=== PATIENT | female | born 2000 | race Caucasian/White ===

== ENCOUNTER 2023-01-14 12:07 | Emergency (ER) | payer BC ==
[2023-01-14 12:47] LABS: #Monocytes 0.4 10x3/uL (0.0-1.1); %Basophils 0.4 % (0.0-2.0); %Eosinophils 0.4 % (0.0-6.0); %Lymphocytes 17.4 % (18.0-47.0); %Monocytes 5.4 % (0.0-10.0); Mean Corpuscular HGB CONC 32.4 g/dL (32.0-36.0); Mean Corpuscular Hemoglobin 27.1 pg (27.0-33.0); Mean Corpuscular Volume 83.7 fl (81.6-98.3); Mean Platelet Volume 10.3 fl (7.4-10.4); Platelet Count 262 10x3/uL (150-450); RBC Distribution Width 14.5 % (11.5-14.5); Red Blood Cell (RBC) Count 4.42 10x6/uL (3.90-5.03); White Blood Cell (WBC) Count 7.9 10x3/uL (3.5-10.5)
[2023-01-14 13:03] LABS: ALT (SGPT) 12 U/L (8-55); AST (SGOT) 12 U/L (5-34); Albumin 3.9 g/dL (3.5-5.0); Alkaline Phosphatase 53 U/L (40-110); Anion Gap 14 mmol/L (10-20); BUN (Urea Nitrogen) 7 mg/dL (7.0-18.7); Bilirubin, Total 0.3 mg/dL (0.2-1.2); Calc. Creatinine Clearance 0 mL/min (70-130); Carbon Dioxide 19 mmol/L (22-29); Chloride 109 mmol/L (98-107); Estimated GFR 131; Globulin 3.2 g/dL (2.4-3.5); Glucose 134 mg/dL (70-105); Potassium 3.9 mmol/L (3.5-5.1); Protein, Total 7.1 g/dL (6.0-8.3); Sodium 138 mmol/L (136-145)
[2023-01-14 13:05] LABS: Troponin I Less than 0.010 ng/mL (< 0.028)
[2023-01-14 14:59] LABS: Magnesium 1.7 mg/dL (1.6-2.6)
[2023-01-14 15:13] LABS: Bilirubin Neg (Negative); Blood, Urine Negative (Negative); Clarity Clear (Clear); Glucose, Urine (Dipstick) Normal (Negative); Ketone, Urine Negative (Negative); Leukocyte 100 (Negative); Nitrite Negative (Negative); Protein, Urine (Dipstick) Negative (Neg-Trace); Specific Gravity, Urine 1.005 (1.005-1.030); Urobilinogen Normal mg/dL (Less than 2)
[2023-01-14 16:15] LABS: CAUTI Indications for Culture Pregnancy; RBC/HPF 0-3 HPF (0-3); Squamous Epithelial 0-3 HPF (0-3)
[2023-01-14 16:17] LABS: Bacteria/HPF 2+ HPF (None Seen); Mucous/LPF 1+ LPF (<2+)
[2023-01-14 16:18] LABS: Urine Culture Reflex Yes Yes
[2023-01-14] MEDS ORDERED: Acetaminophen 325 MG TAB ONE (17:25)
== END 2023-01-14 18:02 | disposition home or self-care (01) ==
LOC: CSHERS 12:07
DX: O99.891 Other specified diseases and conditions complicating pregnancy (principal); R00.0 Tachycardia, unspecified; Z3A.18 18 weeks gestation of pregnancy
CPT/HCPCS: 36415; 71045; 80053; 81001; 83735; 83880; 84484; 85025; 87086; 93005